=== PATIENT | female | born 1965 ===

== ENCOUNTER 2023-07-26 11:30 | Inpatient (IN) | payer OTHER ==
[~2023-07-26] VITALS: Ht 157.5 cm; Wt 73.5 kg
[2023-07-26] MEDS ORDERED: TOPROL XL25 M1 PO (14:05)
[2023-08-01] MEDS ORDERED: CEFTRIAXONE SODIUM 2,000 MG VIAL ONE (07:12)
[2023-08-01] MEDS ORDERED: METRONIDAZOLE/SODIUM CHLORIDE 500 MG/100 ML PIGGYBACK IV ONE (07:12)
[2023-08-01] MEDS ORDERED: LIDOCAINE HCL/EPINEPHRINE 10MG/ML 1% 50ML IJ ONE ×2 (08:02→09:15)
[2023-08-01] MEDS ORDERED: BUPIVACAINE HCL 250MG/50ML VIAL ONE (08:04)
[2023-08-01] MEDS ORDERED: BUPIVACAINE HCL 250MG/50ML VIAL IJ ONE (09:15)
[2023-08-01] MEDS ORDERED: CEFTRIAXONE SODIUM 2,000 MG VIAL IV SCH (09:15)
[2023-08-01] MEDS ORDERED: METRONIDAZOLE/SODIUM CHLORIDE 500 MG/100 ML PIGGYBACK IV SCH (09:15)
[2023-08-01] MEDS ORDERED: OxyCODONE HCL 5 MG TABLET (ROXICODONE) PO PRN (10:15)
[2023-08-01] MEDS ORDERED: ONDANSETRON HCL 2 MG/ML VIAL IV PRN (10:15)
[2023-08-01] MEDS ORDERED: RINGERS SOLUTION,LACTATED 1,000 ML IV SCH (10:15)
[2023-08-01] MEDS ORDERED: MORPHINE SULFATE 4 MG/ML CARTRIDGE IV PRN (10:15)
[2023-08-01] MEDS ORDERED: ENALAPRILAT DIHYDRATE 1.25 MG/ML VIAL IV PRN (11:45)
[2023-08-01 12:18] LABS: ABG PH 7.329 (7.35-7.45); ABG PO2 135.3 mmHg (80-100); ABG pCO2 44.1 mmHg (35-45); BASE EXCESS -3.3 mmol/l; BICARBONATE 22.7 mmol/l (23-25); SaO2 98.7 %; allen test SATISFACTORY; puncture site RADIAL RIGHT
[2023-08-01 12:19] LABS: o2 40 %
[2023-08-01] MEDS ORDERED: SIMETHICONE 125 MG CAPSULE PO SCH (13:00)
[2023-08-01] MEDS ORDERED: HYOSCYAMINE SULFATE 0.125 MG TAB.SUBL SL SCH (13:00)
[2023-08-01 13:48] LABS: HEMATOCRIT 42.1 % (36.0-45.00); HEMOGLOBIN 14.1 g/dL (12.0-15.00); MEAN CELL VOLUME 86.8 fL (80.00-100.00); MEAN CORPUSCULAR HEMOGLOBIN 29.1 pg (27.00-32.0); MEAN CORPUSCULAR HGB CONC 33.5 g/dl (32.0-36.0); PLATELET COUNT 224 K/uL (150-450); RED BLOOD COUNT 4.85 M/uL (4.00-6.00); RED CELL DISTRIBUTION WIDTH 14.1 % (11.5-14.5)
[2023-08-01] MEDS ORDERED: ACETAMINOPHEN 500 MG GEL..CAP PO SCH (14:00)
[2023-08-01] MEDS ORDERED: HYOSCYAMINE SULFATE 0.125 MG TAB.SUBL ONE (16:38)
[2023-08-01] MEDS ORDERED: SIMETHICONE 125 MG CAPSULE PO ONE (16:38)
[2023-08-01] MEDS ORDERED: GABAPENTIN 300 MG CAPSULE PO ONE (16:39)
[2023-08-01] MEDS ORDERED: METOCLOPRAMIDE HCL 5 MG/ML VIAL ONE (16:39)
[2023-08-01] MEDS ORDERED: POLYETHYLENE GLYCOL 3350 17 GM BLIST.PACK PO SCH (17:00)
[2023-08-01] MEDS ORDERED: METOCLOPRAMIDE HCL 5 MG/ML VIAL IV SCH (17:00)
[2023-08-01] MEDS ORDERED: CELECOXIB 200 MG CAPSULE PO SCH (17:00)
[2023-08-01] MEDS ORDERED: GABAPENTIN 300 MG CAPSULE PO SCH (17:00)
[2023-08-01 20:14] LABS: ABG PH 7.413 (7.35-7.45); ABG PO2 86.5 mmHg (80-100); BASE EXCESS -0.1 mmol/l; BICARBONATE 24.3 mmol/l (23-25); SaO2 96.7 %; Tco2 25.5 mmol/l; allen test SATISFACTORY; o2 21 %; puncture site RADIAL LEFT
[2023-08-01] MEDS ORDERED: FAMOTIDINE/PF 20 MG/2 ML VIAL IV PUSH SCH (21:00)
[2023-08-02] MEDS ORDERED: LACTOBACILLUS ACIDOPHILUS 1 CAP CAP PO SCH (09:00)
[2023-08-02] MEDS ORDERED: LACTULOSE 20 G/30 ML BLIST.PACK PO SCH (09:00)
[2023-08-02 12:03] LABS: HEMATOCRIT 41.4 % (36.0-45.00); HEMOGLOBIN 13.9 g/dL (12.0-15.00); MEAN CELL VOLUME 87.2 fL (80.00-100.00); MEAN CORPUSCULAR HEMOGLOBIN 29.3 pg (27.00-32.0); MEAN CORPUSCULAR HGB CONC 33.6 g/dl (32.0-36.0); PLATELET COUNT 214 K/uL (150-450); RED BLOOD COUNT 4.75 M/uL (4.00-6.00); RED CELL DISTRIBUTION WIDTH 14.4 % (11.5-14.5)
[2023-08-02 12:46] LABS: CALCIUM 8.8 mg/dL (8.5-10.1); CREATININE SERUM 0.9 mg/dL (0.55-1.02); GFR 64.31; MAGNESIUM 2.2 mg/dL (1.8-2.4); PHOSPHOROUS 2.3 mg/dL (2.5-4.9); POTASSIUM 3.65 mEq/L (3.5-5.1)
[2023-08-02] MEDS ORDERED: POTASSIUM PHOS,M-BASIC-D-BASIC 3 MM/ML VIAL IV ONE (13:00)
[2023-08-02] MEDS ORDERED: CEFTRIAXONE SODIUM 2,000 MG VIAL IV SCH (15:00)
[2023-08-02] MEDS ORDERED: ENOXAPARIN SODIUM 40 MG/0.4 ML SYRINGE SUBCUTANEO SCH (17:00)
[2023-08-03] MEDS ORDERED: ENOXAPARIN SODIUM 40 MG/0.4 ML SYRINGE SUBCUTANEO SCH (09:00)
[2023-08-03 13:12] LABS: HEMOGLOBIN 14.5 g/dL (12.0-15.00); MEAN CORPUSCULAR HEMOGLOBIN 30.3 pg (27.00-32.0); MEAN CORPUSCULAR HGB CONC 34.5 g/dl (32.0-36.0); PLATELET COUNT 219 K/uL (150-450); RED BLOOD COUNT 4.77 M/uL (4.00-6.00); RED CELL DISTRIBUTION WIDTH 14.1 % (11.5-14.5)
[2023-08-03 13:31] LABS: CALCIUM 8.9 mg/dL (8.5-10.1); CREATININE SERUM 0.69 mg/dL (0.55-1.02); GFR 87.38; MAGNESIUM 2.1 mg/dL (1.8-2.4); POTASSIUM 3.84 mEq/L (3.5-5.1)
[2023-08-03] MEDS ORDERED: POTASSIUM PHOS,M-BASIC-D-BASIC 3 MM/ML VIAL IV ONE (14:30)
== END 2023-08-04 16:25 | disposition home or self-care (01) | DRG 330 ==
LOC: O/R 08-01 05:30 → SURH 08-01 07:00
PROVIDERS: Internal Medicine Geriatric Medicine; ADMIT Colon & Rectal Surgery; ATTEND Colon & Rectal Surgery
PROC: 0DBP4ZZ Excision of Rectum, Percutaneous Endoscopic Approach (ICD-10-PCS; 2023-08-01)
PROC: 0DJD8ZZ Inspection of Lower Intestinal Tract, Via Natural or Artificial Opening Endoscopic (ICD-10-PCS; 2023-08-01)
PROC: 0DTN4ZZ Resection of Sigmoid Colon, Percutaneous Endoscopic Approach (ICD-10-PCS; principal; 2023-08-01 07:00)
DX: K57.20 Diverticulitis of large intestine with perforation and abscess without bleeding (principal); K92.1 Melena; I10 Essential (primary) hypertension